=== PATIENT | female | born 1985 | race Two or more races ===

== ENCOUNTER → 2020-07-21 | Outpatient (CLI) | payer OTHER ==
[~2020-07-21] MED LIST: ISOVUE-370 76% 100ML VIAL As Ordered ONE
--- NOTE | 2020-07-21 12:50 | ROOPDOC ---
[facility] Report Of Operation Report of Operation DATE OF PROCEDURE: 07/21/20 PRE-PROCEDURE DIAGNOSIS: 1) Infertility POST-PROCEDURE DIAGNOSIS: Same PHYSICIAN PERFORMING PROCEDURE: Moshe CONSENT: The HSG procedure, indication, risks, and benefits were discussed with the patient and informed written consent was obtained. PATIENT COUNSELLED IN REGARDS TO HSG RISKS AND BENEFITS TO INCLUDE INFECTION, DISRUPTION OF , BLEEDING, AND PAIN. FINAL TIME OUT PERFORMED IMMEDIATELY PRIOR TO HSG. PROCEDURE: STERILE SPECULUM PLACED CERVIX CLEANSED WITH BETADINE TRIPLE SWAB TENACULUM UTILIZED (NO) HSG CATHETER PASSED, BALLOON INFLATED APPROX 10mL OF ISOVUE CONTRAST WAS INFUSED AP AND OBLIQUE IMAGES WERE OBTAINED PRELIMINARY FINDINGS: 1) UTERINE FINDINGS NORMAL 2) LEFT FALLOPIAN TUBE PATENT 3) RIGHT FALLOPIAN TUBE HYDROSALPINX, NO SPILL PATIENT TOLERATED THE PROCEDURE WELL DISCHARGED TO HOME WITH PRECAUTIONS ANTIBIOTICS RECOMMENDED: YES COMPLICATIONS: NONE DISCHARGE INSTRUCTIONS GIVEN PATIENT TO F/U WITH ORDERING PROVIDER FOR FINAL IMPRESSION AND CLINICAL CORREL ATION APPROX TIME: 10 MIN COUNSELLING 20 MIN IN PROCEDURE GASTON PATEL DO Jul 21, 2020 12:50
--- NOTE | 2020-07-21 16:04 | REP ---
INDICATION: INFERTILITY. COMPARISON: None. TECHNIQUE: The endometrium was cannulated and contrast was injected by the attending vehicle check in clerk . Fluoroscopic spot films were acquired by [employer], under the direct supervision of . Images reviewed prior with to dictation. FINDINGS: Fluoroscopy spot radiographs document filling of a normal endometrial cavity. There is normal isthmic and ampullary fallopian tube opacification. There is patency of the left fallopian tube with spill. There is hydrosalpinx of the right fallopian tube with opacification, no spill is seen on the right side.. IMPRESSION: Patency with spill of the left fallopian tube. Hydrosalpinx of the right fallopian tube without spill. 1.1 minutes of fluoroscopy time was utilized for this procedure. Some fluoroscopic images are performed with last image hold technology. These images require no additional radiation. <Electronically signed by Sylvia Khan > 07/21/20 1433 <Electronically signed by Donn Cardenas > 07/21/20 1602
== END ==
LOC: M RADPRO 11:30
PROVIDERS: ATTEND Obstetrics & Gynecology
DX: N97.9 Female infertility, unspecified (principal)
CPT/HCPCS: 58340; 74740; Q9967

== ENCOUNTER 2020-11-03 08:49 | Day surgery (SDC) | payer OTHER ==
[~2020-11-03] VITALS: Ht 157.5 cm; Wt 62.6 kg
[~2020-11-03 08:49] MED LIST changes: +ACETAMINOPHEN *IV* 1,000 MG IV ONE; +ATARAX PO; +CYCL5TAB PO; -ISOVUE-370 76% 100ML VIAL As Ordered ONE; +LR 1,000 ML IV ONE; +SCOPOLAMINE 1MG TRANSDERMAL PATCH TOP ONE; +VITMTA PO; +ZYRTTAB8 PO
[2020-11-03] MEDS ORDERED: fentaNYL 250 MCG/5 ML INJECTION (J3010) As Ordered ONE (09:13)
[2020-11-03] MEDS ORDERED: ROCURONIUM BROMIDE 50 MG/5 ML VIAL As Ordered ONE (09:13)
[2020-11-03] MEDS ORDERED: propofoL 200 MG/20 ML VIAL As Ordered ONE (09:13)
[2020-11-03] MEDS ORDERED: LIDOCAINE 2% 100MG/5ML SDV (FOR ANES.) As Ordered ONE (09:13)
[2020-11-03] MEDS ORDERED: MIDAZOLAM INJ 2MG/2ML VIAL (J2250 PER 1MG) As Ordered ONE (09:13)
[2020-11-03 09:23] LABS: HEMATOCRIT 41.7 % (36.0-47.0); HEMOGLOBIN 14.3 g/dl (12.0-15.5); MEAN CORPUSCULAR HEMOGLOBIN 29.1 pg (27.0-33.0); MEAN CORPUSCULAR HGB CONC 34.3 g/dl (32.0-36.5); MEAN CORPUSCULAR VOLUME 84.9 fl (80.0-96.0); PLATELET COUNT, AUTOMATED 273 10^3/uL (150-450); RED BLOOD COUNT 4.91 10^6/uL (4.00-5.40); WHITE BLOOD COUNT 4.8 10^3/uL (4.0-10.0)
[2020-11-03 09:41] LABS: HCG, SERUM QUALITATIVE NEGATIVE (NEGATIVE)
[2020-11-03 10:03] LABS: ALBUMIN 3.7 GM/DL (3.2-5.2); ALT/SGPT 22 U/L (12-78); BILIRUBIN,TOTAL 0.4 MG/DL (0.2-1.0); BLOOD UREA NITROGEN 9 MG/DL (7-18); CALCIUM LEVEL 8.7 MG/DL (8.5-10.1); CARBON DIOXIDE LEVEL 27 MEQ/L (21-32); CHLORIDE LEVEL 108 MEQ/L (98-107); CREATININE FOR GFR 0.77 MG/DL (0.55-1.30); GLOMERULAR FILTRATION RATE > 60.0 (>60); GLUCOSE, FASTING 76 MG/DL (70-100); POTASSIUM SERUM 4.1 MEQ/L (3.5-5.1); SODIUM LEVEL 140 MEQ/L (136-145); TOTAL PROTEIN 7.4 GM/DL (6.4-8.2)
[2020-11-03] MEDS ORDERED: BUPIVACAINE HCL 0.25% 10ML VIAL As Ordered ONE (10:24)
[2020-11-03] MEDS ORDERED: dexameTHASONE 4 MG/ML 1ML VIAL (J1100 PER 1MG) As Ordered ONE (10:54)
[2020-11-03] MEDS ORDERED: ACETAMINOPHEN 1000MG 100ML IV BTL (OFIRMEV) (J0131 PER 10MG) As Ordered ONE (10:58)
[2020-11-03] MEDS ORDERED: METOCLOPRAMIDE INJ 10MG/2ML VIAL (J2765 PER 1) As Ordered ONE (11:09)
[2020-11-03] MEDS ORDERED: KETOROLAC 60MG 2ML VIAL As Ordered ONE (11:09)
[2020-11-03] MEDS ORDERED: ONDANSETRON 4MG/2ML VIAL As Ordered ONE (11:09)
[2020-11-03] MEDS ORDERED: HYDROMORPHONE HCL 0.5 MG/ 0.5 ML SYRINGE (J1170 PER 1) IV PRN (11:25)
[2020-11-03] MEDS ORDERED: LR 1,000 ML IV SCH (11:25)
[2020-11-03] MEDS ORDERED: oxyCODONE 5MG TAB PO PRN ×2 (11:25→12:55)
[2020-11-03] MEDS ORDERED: ONDANSETRON 4MG/2ML VIAL IV PRN (11:25)
[2020-11-03] MEDS ORDERED: SILVER NITRATE APPLICATOR As Ordered ONE ×2 (12:13→12:27)
[2020-11-03] MEDS: fentaNYL 100 MCG/2 ML INJECTION (J3010) IV PRN ×4 (12:48→13:22)
--- NOTE | 2020-11-03 13:39 | ROOPDOC ---
[facility] Report Of Operation Report of Operation DATE OF PROCEDURE: 11/03/20 PREPROCEDURE DIAGNOSES: infertility tubal factor, right hydrosalpinx POSTPROCEDURE DIAGNOSES: infertility tubal factor, right hydrosalpinx, left hydr osalpinx, pelvic adhesive disease, [id number]-[id number] disease PROCEDURE: laparoscopic bilateral salpingectomy, lysis of pelvic adhesions SURGEON: Luciano Patel DO [employer] SPECIALIST: Gallito Tim MD ANESTHESIA: general ESTIMATED BLOOD LOSS: Approximately 10 mL. COMPLICATIONS: none REMARKS: none PROCEDURE NOTE: The risks, benefits, and alternatives of the procedure were discussed and written consent obtained. The patient was given scopolamine and tylenol 1000mg IV prior to surgery. She was taken to the OR where she was placed under general anesthesia. She was positioned in low lithotomy with her arms tucked. The vagina, abdomen, and perineum were prepped and draped in a sterile fashion. The bladder was drained. A final time out was performed. 0.15% marcaine was injected into the infraumbilical fold. A 5mm incision was made with a scalpel. 5mm port placement via the direct technique was attempted without success. A veres needle was placed and intra-abdominal entry confirmed with the drop test. The opening pressure was 7 mmHg. After veres insufflation, direct entry was successful. The area below entry was inspected and was atraumatic. An anatomy survey was performed. Ymdo-ewsv-[id number] disease was noted at the liver. The stomach edge and appendix appeared normal. There were adhesions from the right sigmoid colon to the abdominal wall. There were adhesions from the bilateral fallopian tubes to the uterus, ovaries, and bowel. There were adhesions from the posterior uterus to the rectum. The bilateral fallopian tubes were significantly dilated and coiled with visible pinch points due to adhesions. Given the prior conversation with the patient and bilateral hydrosalpinx, see history and physical report, decision made to proceed with bilateral salpingectomy and cavity clearance for in-vitro fertilization as planned. The bilateral ASISs were identified. 2cm superior and medially was transillummin ated. A 5mm port was placed under direct visualization in the right lower quadrant. An 11mm port was placed under direct visualization in the left lower quadrant. Adhesions from tubes to ovaries, uterus, and bowel were lysed with the ligasure. The bilateral fallopian tubes were resected at the level of the mesosalpinx with the ligasure. The tubes were removed via the 11mm port. The surgical sites were irrigated and remained hemostatic. The pneumoperitoneum was slowly released and the surgical sites remained hemostatic. The lower quadrant ports were removed under direct visualization and were hemostatic. The 11mm port site fascia was closed with 0-vicryl in a running fashion. The subcutaneous tissue of the port sites was then reapproximated with 3-0 monocryl and the skin secured with dermabond. An operative speculum was placed in the vagina and the anterior lip of the cervix grasped with a single tooth tenaculum. The cervix was dilated to 15F with hanks dilators. A 5mm hysteroscope was introduced to the fundus. There were no adhesions or lesions. The bilateral ostea were visible. The hysteroscope and tenaculum were removed. The puncture sites were hemostatic with the aid of silver nitrate. The speculum was removed. There were no complications. The sponge, lap, and needle counts were correct x2. The patient tolerated the procedure well and was transferred to recovery in stable condition. LUCIANO PATEL DO Nov 03, 2020 13:39
[2020-11-03 14:30] VITALS: BP 115/66
[2020-11-03] MEDS ORDERED: ACETAMINOPHEN 500 MG TAB PO SCH (22:00)
[2020-11-03] MEDS ORDERED: IBUPROFEN 800 MG TAB PO SCH (22:00)
== END 2020-11-03 14:35 | disposition home or self-care (01) ==
LOC: M SDC 08:49
PROVIDERS: ATTEND Obstetrics & Gynecology
DX: N97.1 Female infertility of tubal origin (principal); N73.6 Female pelvic peritoneal adhesions (postinfective); N83.8 Other noninflammatory disorders of ovary, fallopian tube and broad ligament; Z79.899 Other long term (current) drug therapy
CPT/HCPCS: 36415; 58558; 58660; 58661; 80053; 84703; 85027; 86850; 86900; 86901; 88302; J0131; J1100; J1885; J2250; J2405; J2765; J3010